=== PATIENT | female | born 1970 | race Caucasian/White ===

== ENCOUNTER 2020-11-05 17:49 | Emergency (ER) | payer SELFPAY ==
--- NOTE | ~2020-11-05 | CT_ITS ---
EXAMINATION: CT abdomen pelvis wo con EXAM DATE: 11/05/2020 18:52 INDICATION: Hematuria and right flank pain. TECHNIQUE: Spiral CT of the abdomen and pelvis was performed without contrast. Axial, coronal and sag ittal images were reviewed. The dose-length product (DLP) for this examination was 1438.31 mGy-cm. The exposure was tailored according to patient size (auto mA exposure control), and iterative reconst ruction (ASIR) was used as additional dose reduction technique. There is no prior study for comparis on. FINDINGS: There is thin band of soft tissue density extending across the lower abdomen, probably abdo jeet wall dehiscence of the inner most fascial plane. There is 3 mm calcific density lower pole le ft kidney, nephrolithiasis or milk of calcium in a tiny cyst. No hydronephrosis or nephrolithiasis. The uterus is unremarkable. The bladder is undistended at time of imaging. The liver, spleen, adre nal glands and pancreas are unremarkable. There are cholecystectomy clips. There is no retroperiton eal or pelvic lymphadenopathy. Probable appendectomy. The stomach and small bowel are unremarkable. There is expected amount of co lonic stool. No free intraperitoneal gas. The heart is normal in size. There are no pericardial or pleural effusions. The lung bases are unremarkable. There are no osteoblastic or osteolytic lesi ons identified. IMPRESSION: 1. Possible left nephrolithiasis. 2. No acute intra-abdominal findings. Reviewed, dictated and finalized at location A. [employer]
[2020-11-05 18:01] VITALS: BP 139/81; PULSE 68; RESP 20; TEMP 36.7; O2SAT 99
--- NOTE | 2020-11-05 18:13 | PC.NURSE ---
Pt unable to urinate at this time
[2020-11-05 18:31] LABS: Basophils Absolute Auto 0.1 K/mm3 (0.0-0.1); Basophils Percent Auto 1.1 % (0.2-1.2); Eosinophils Absolute Auto 0.2 K/mm3 (0-0.3); Eosinophils Percent Auto 2.3 % (0-4.4); Hemoglobin 15.1 g/dL (12.0-15.0); Immature Granulocyte Absolute 0.03 K/mm3 (0.00-0.031); Immature Granulocyte Percent A 0.5 % (0-0.5); Immature Platelet Fraction Pct 1.5 % (0.9-11.2); Lymphocytes Absolute Auto 1.82 K/mm3 (0.9-3.2); Lymphocytes Percent Auto 27.6 % (18.3-44.2); Mean Corpuscular HGB Conc 33.6 g/dl (32-36); Mean Corpuscular Hemoglobin 31.5 pg (26-34); Mean Corpuscular Volume 93.8 fl (80-100); Mean Platelet Volume 9.1 fl (7.4-10.4); Monocytes Absolute Auto 0.6 K/mm3 (0.1-0.6); Monocytes Percent Auto 9.5 % (2.6-8.5); Neutrophils Absolute Auto 3.9 K/mm3 (1.3-6.7); Platelet Count Result 285 k/mm3 (150-375); Red Cell Distribution Width 12.9 % (11.5-14.5); White Blood Count 6.6 K/mm3 (4.5-10.0)
[2020-11-05] MEDS: FAMOTIDINE 20 MG/2 ML VIAL IV PUSH (18:42)
[2020-11-05] MEDS: MORPHINE SULFATE (*CRX) 4 MG/ML INJ IV PUSH (18:42)
[2020-11-05] MEDS: ONDANSETRON INJ 4 MG/2 ML VIAL IV PUSH (18:43)
[2020-11-05] MEDS: SODIUM CHLORIDE 0.9% IV 1,000 ML 999 ML IV CONT (18:43)
--- NOTE | 2020-11-05 18:57 | PC.NURSE ---
Pt still in obvious pain, moaning and crying. Brian made aware and placed new med orders
[2020-11-05] MEDS: HYDROmorphone HCL INJ (*CRX) 1 MG/ML SYR IV PUSH (19:04)
[2020-11-05 19:31] LABS: Add Urine Microscopic? YES; Appearance Urine Cloudy (Clear); Bacteria Urine Trace /hpf; Bilirubin Urine Negative (Negative); Blood Urine 3+ (Negative); Color Urine Red (Yellow); Glucose Urine UA Negative (Negative); Ketones Urine Negative (Negative); Leukocyte Esterase Ur 1+ LEU/UL (Negative); Mucus Urine Heavy /lpf; Nitrate Urine Negative (Negative); Protein Urine 2+ mg/dL (Negative); RBC Urine >75 /hpf (0-2); Squamous Epithelial Cell Urine Many /hpf (Few); WBC Urine >75 /hpf
[2020-11-05 19:32] LABS: Specific Grav Ur 1.033 (1.001-1.035)
[2020-11-05 20:16] LABS: Alanine Aminotransferase 27 U/L (4-35); Albumin Level 4.1 g/dL (3.5-5.1); Alkaline Phosphatase 93 U/L (38-126); Aspartate Amino Transferase 35 U/L (14-36); Bilirubin,Total 0.4 mg/dL (0.2-1.3)
[2020-11-05 20:17] LABS: Anion Gap 8 mmol/L (8-16); Blood Urea Nitrogen 21 mg/dL (7-17); Calcium 9.1 mg/dL (8.4-10.2); Carbon Dioxide 24 mmol/L (22-30); Chloride 108 mmol/L (98-107); Estimated CRCL calculation 93 ml/min; Estimated Glomerular Filt Rate > 60; Glucose 98 mg/dL (65-105); Potassium 4.1 mmol/L (3.4-5.0); Sodium 140 mmol/L (137-145)
--- NOTE | 2020-11-05 20:17 | ED.GENADULT ---
HPI - General Adult General Chief complaint: Abdominal Pain Stated complaint: Right Flank Pain Time Seen by Provider: 11/05/20 18:07 Source: patient Mode of arrival: ambulatory Limitations: no limitations History of Present Illness HPI narrative: Patient is a 50-year-old female who presents with right-sided abdominal pain flank pain for the last several days is currently traveling back home to [place] pain is intensified presents for evaluation noting history of urolithiasis patient is attempted [id number] medications with minimal improvement patient notes associated nausea and vomiting with the pain patient on arrival appears uncomfortable patient denies chest pain shortness of breath URI symptoms patient otherwise in no distress upon arrival Related Data Allergies Allergy/AdvReac Type Severity Reaction Status Date / Time fentanyl Allergy Chest Pain Verified 11/05/20 18:09 metoclopramide [From Reglan] Allergy Rash Verified 11/05/20 18:09 Review of Systems Review of Systems: All systems reviewed & are unremarkable except as noted in HPI and below PMFSH Past Medical History Medical History (Updated 11/05/20 @ 20:20 by Truong Gregory PA-C) Obesity Urolithiasis Exam Narrative: Exam Narrative: GENERAL: Well-appearing, obese, and in no acute distress. HEAD: Normocephalic, atraumatic. EYES: PERRLA and EOMI. ENT: Nares clear, no rhinorrhea or epistaxis. Mucous membranes moist. CHEST: Clear to auscultation. No respiratory distress. No wheezes rales or rhonchi HEART: Regular rate and rhythm. No murmur heard. Normal peripheral pulses. ABDOMEN: Soft, tenderness in the right side of the abdomen no rebound or guarding, nondistended, normal active bowel sounds. EXTREMITIES: Normal range of motion. No edema. SKIN: Warm, dry, no rash. NEURO: No focal deficits. Alert and oriented x3. PSYCH: Normal mood and affect. Course Course Emergency Course: Patient hydrated and evaluated in the emergency department found to have urinary tract infection no urolithiasis seen on CAT scan patient has been given antibiotics fluids and pain management will be discharged home advised to follow with her primary care doctor upon returning home patient agrees with this plan Vital Signs Vital signs: Vital Signs Temperature 98.1 F 11/05/20 18:01 Pulse Rate 68 11/05/20 18:01 Respiratory Rate 20 11/05/20 18:01 Blood Pressure 139/81 11/05/20 18:01 Pulse Oximetry 99 11/05/20 18:01 Temperature 98.1 F 11/05/20 18:01 Pulse Rate 68 11/05/20 18:01 Respiratory Rate 20 11/05/20 18:01 Blood Pressure 139/81 11/05/20 18:01 Pulse Oximetry 99 11/05/20 18:01 Medical Decision Making MDM Narrative Medical decision making narrative: Patient found to have urinary tract infection hemodynamically stable no other high risk changes will be discharged home with outpatient follow-up Vital Signs Vital Signs: Vital Signs Temperature 98.1 F 11/05/20 18:01 Pulse Rate 68 11/05/20 18:01 Respiratory Rate 20 11/05/20 18:01 Blood Pressure 139/81 11/05/20 18:01 Pulse Oximetry 99 11/05/20 18:01 Temperature 98.1 F 11/05/20 18:01 Pulse Rate 68 11/05/20 18:01 Respiratory Rate 20 11/05/20 18:01 Blood Pressure 139/81 11/05/20 18:01 Pulse Oximetry 99 11/05/20 18:01 Lab Data Result diagrams: 11/05/20 18:21 11/05/20 18:21 Labs: Lab Results 11/05/20 11/05/20 11/05/20 Range/Units 18:21 18:21 19:18 WBC 6.6 (4.5-10.0) K/mm3 RBC 4.80 (4.2-5.4) M/mm3 Hgb 15.1 H (12.0-15.0) g/dL Hct 45.0 (37.0-47.0) % MCV 93.8 (80-100) fl MCH 31.5 (26-34) pg MCHC 33.6 (32-36) g/dl RDW 12.9 (11.5-14.5) % Plt Count 285 (150-375) k/mm3 MPV 9.1 (7.4-10.4) fl Immature Gran % (Auto) 0.5 (0-0.5) % Neut % (Auto) 59.0 (45.5-73.1) % Lymph % (Auto) 27.6 (18.3-44.2) % [place] % (Auto) 9.5 H (2.6-8.5) % Eos % (Auto) 2.3 (0-4
[2020-11-05 20:33] VITALS: BP 134/79; PULSE 82; RESP 16; TEMP 36.7; O2SAT 99
== END 2020-11-05 20:34 | disposition home or self-care (01) ==
PROVIDERS: Emergency Medicine Emergency Medical Services; Emergency Provider Family Medicine
DX: N39.0 Urinary tract infection, site not specified (principal); E66.9 Obesity, unspecified; Z68.36 Body mass index [BMI] 36.0-36.9, adult
CPT/HCPCS: 36415; 74176; 80048; 80076; 81001; 85025; 85055; 87077; 87086; 87088; 87186; 96361; 96365; 96375; 99284; J0696; J1170; J2270; J2405; J7030